=== PATIENT | male | born 1960 | race Caucasian/White ===

== ENCOUNTER 2019-06-01 06:00 | Day surgery (SDC) | payer OTHER ==
--- NOTE | 2019-05-30 09:55 | HP ---
PREOPERATIVE HISTORY AND PHYSICAL: DATE OF ADMISSION: 06/01/19 PROCEDURE: Left knee arthroscopy for partial meniscectomy. PHYSICIAN: Dr. Aleisha Rubi.* (DICTATED BY FELICIA RICHEY) CHIEF COMPLAINT: Left knee pain. HISTORY OF PRESENT ILLNESS: The patient is a 58-year-old gentleman with 6 months of acute left knee pain that has become progressively worse over the last month. He has swelling, catching and locking in the knee and the knee can feel unstable at times as if it is going to give out on him. His pain is increased with bending, stair climbing, pivoting and twisting and he has tried anti-inflammatories, brace wearing and exercises at home without relief. An MRI was performed, which confirmed a tear of the meniscus. PAST MEDICAL HISTORY: 1. Hypertension. 2. Hypercholesterolemia. 3. Osteoarthritis. 4. Prediabetes. PAST SURGICAL HISTORY: Cervical diskectomy with no anesthetic complications and no DVT or pulmonary embolus. FAMILY HISTORY: Positive for heart disease, hypertension, and cancer. Siblings with diabetes. 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 He denies tobacco, alcohol or recreational drug use. He is normally very active and he is right hand dominant. CURRENT MEDICATIONS: 1. Amlodipine besylate 10 mg 1 tab p.o. daily. 2. Ramipril 10 mg 2 tabs p.o. daily. 3. Meloxicam 15 mg 1 tab p.o. daily. 4. Atorvastatin calcium 10 mg 1 tab p.o. q.h.s. 5. Clobetasol propionate topical 0.05% to affected areas daily as needed. 6. Metformin HCL 500 mg 1 tab q.h.s. 7. Fish oil 1200 mg 2 tabs p.o. daily. 8. CoQ10 100 mg 1 tab p.o. daily. 9. Aspirin 81 mg p.o. daily. ALLERGIES: NIASPAN. REVIEW OF SYSTEMS: Fourteen systems are reviewed with the patient and are negative for fevers, chills, nausea, vomiting, chest pain or shortness of breath with exertion and all other systems are negative. PHYSICAL EXAMINATION GENERAL: He is a well-developed, well-nourished male seated in exam chair in no acute distress with appropriate affect. VITAL SIGNS: Height 73 inches, weight 260 pounds, pulse 77, blood pressure 138/ 82. HEENT: Normocephalic, atraumatic. Hearing and vision are grossly intact. His extraocular movements intact. NECK: The trachea is midline and symmetrical. LUNGS: Clear to auscultation. No wheezes, rales or rhonchi appreciated. CARDIO: Regular rate and rhythm. Normal S1, S2. No murmurs, rubs or gallops noted. ABDOMEN: Nondistended. Bowel sounds present. MUSCULOSKELETAL: The left lower extremity skin is intact without open wounds or abrasions. There is a moderate effusion of the knee. He extends the knee to 5 degrees, flexes to 120 with pain. He has a positive Apley's and Montserrat' s and is tender along the medial joint line. He is stable to varus and valgus stress with a negative Jeny's and no distal edema, varicosities or hyperreflexia. He has 5/5 strength against resistance in 4 planes in the ankle with intact sensation and a 2+ dorsalis pedis pulse. IMAGING: MRI shows a large joint effusion with medial extrusion and severe degenerative changes with tearing of the body and posterior horn of the medial meniscus as well as moderate hyaline cartilage thinning along the medial femoral condyle and medial tibial plateau with subchondral bone marrow edema. There is mild chondromalacia patella. IMPRESSION: Left knee meniscus tear and osteoarthritis. PLAN: Left knee arthroscopy with partial meniscectomy with Dr. Rubi. The patient's questions were answered and he would like to proceed. He will follow up postoperatively 10 to 14 days after procedure and call with questions or concerns otherwise. He has clearance with his primary care provider, Ada Giraldo, nurse practitioner on 06/01/19. FELICIA RICHEY [id number]/[facility] #: [id number] FARNAZ
[~2019-06-01 06:00] MED LIST: Acetaminophen TAB* 325 MG PO ONE; Buffered Lidocaine 1% SYRIN* 1 ML/SYRINGE INTRADERM ONE; Lactated Ringers 1000 ML Bag* 1,000 ML IV SCH
[2019-06-01] MEDS ORDERED: Acetaminophen TAB* 325 MG ONE (06:40)
[2019-06-01] MEDS ORDERED: Buffered Lidocaine 1% SYRIN* 1 ML/SYRINGE INTRADERM ONE (06:41)
[2019-06-01] MEDS ORDERED: ceFAZolin 2 GM PREMIX in ORs 2 GM/50 ML BAG ONE (06:41)
[2019-06-01] MEDS ORDERED: methylPREDNISolone ACETATE 80* 80 MG/ML 1 ML VIAL ONE (06:58)
[2019-06-01] MEDS ORDERED: Bupivacaine 0.5%* 50 ML MDV VIAL ONE (06:58)
[2019-06-01] MEDS ORDERED: EPINEPHRINE 1 MG/ML 1 ML VIAL ONE (06:58)
[2019-06-01] MEDS ORDERED: PROCHLORPERAZINE INJ 5 MG/ML 2 ML VIAL IV PRN (07:03)
[2019-06-01] MEDS ORDERED: oxyCODONE TAB* 5 MG TAB PO PRN (07:03)
[2019-06-01] MEDS ORDERED: Naloxone* 0.4 MG/ML 1 ML VIAL IV PRN (07:03)
[2019-06-01] MEDS ORDERED: diPHENhydraMINE IV* 50 MG/ML 1 ml VIAL (BENADRYL) IV PRN (07:03)
[2019-06-01] MEDS ORDERED: fentaNYL* 50 MCG/ML 2 ML VIAL (100 MCG VIAL) ONE ×2 (07:13→08:10)
[2019-06-01] MEDS ORDERED: Lidocaine 2% PF * 5 ML VIAL ONE (07:14)
[2019-06-01] MEDS ORDERED: Propofol* 10 MG/ML 20 ML BTL ONE (07:14)
[2019-06-01] MEDS ORDERED: Midazolam* 1 MG/ML 2 ML VIAL (2 MG) ONE (07:14)
[2019-06-01] MEDS ORDERED: Ketorolac INJ* 30 MG/ML 1 ML VIAL ONE (07:34)
[2019-06-01] MEDS ORDERED: Ondansetron INJ* 2 MG/ML VIAL ONE (07:34)
[2019-06-01] MEDS ORDERED: HYDROmorphone INJ1* 1 MG/ML SYRINGE ONE ×3 (07:46→10:39)
[2019-06-01] MEDS: HYDROmorphone INJ1* 1 MG/ML SYRINGE IV PRN ×2 (09:10→09:15)
[2019-06-01 11:19] VITALS: BP 121/69
--- NOTE | 2019-06-02 13:06 | OP ---
OPERATIVE REPORT: DATE OF OPERATION: 06/01/19 DATE OF : 64 ATTENDING SURGEON: Aleisha Rubi MD CERTIFIED PEST CONTROL TECHNICIAN: FELICIA Posada Trinajorge did help throughout the procedure with preparation of the leg, wound retraction, manipulat ion of the knee and wound closure. ANESTHESIOLOGIST: Dr. Stephen ANESTHESIA: General. PRE-OP DIAGNOSES: Left knee medial meniscal tear, mild osteoarthritis. POST-OP DIAGNOSES: Left knee medial meniscal tear, lateral meniscal tear, moderate- to-severe osteoa rthritis of the medial compartment. OPERATIVE PROCEDURE: Left knee arthroscopy with partial medial meniscectomy, partial lateral menisce ctomy, and medial chondroplasty. COMPLICATIONS: None. ESTIMATED BLOOD LOSS: 50 cc. SPECIMEN: None. BRIEF HISTORY/INDICATION: Mr. Arellano is a 58-year-old gentleman with acute onset of left knee pain and mechanical symptoms. He failed conservative treatment and MRI confirmed a medial meniscal tear. Plain film showed some mild arthritic changes. Due to the patient's continued pain and decreased qu ality of life, he elected to undergo left knee arthroscopy with partial medial meniscectomy. Informed consent was obtained from the patient. He understood the risk of surgery included, but were not collier ited to bleeding, infection, damage to nearby structures, continued pain, need for further surgery, r etear of the meniscus, progression of arthritis, anesthesia complications, stroke, heart attack, bloo d clot, and . He wished to proceed. INTRAOPERATIVE FINDINGS: Intraoperatively, the patient was noted to have a complex tear of the poste rior 50% of the medial meniscus with a parrot-beak type portion and a radial portion involving the wh ite-red zone. He was noted to have a radial tear in the mid portion of the lateral meniscus. He was noted to have grade 3 and 4 Outerbridge cartilage changes in the medial compartment with exposed sub chondral bone and cartilage flapping. DESCRIPTION OF PROCEDURE: Mr. Arellano was identified in the preanesthesia unit. His left lower extre mity was marked as the correct operative side. Informed consent was signed and placed in the chart. The patient was taken to the operating room and placed under anesthesia without difficulty. Left lo wer extremity was prepped and draped in the usual sterile fashion. Preop time-out was made to correc tly identify the patient, side and site. Appropriate perioperative antibiotics were given within 1 h our of incision. A 0.5 cm anterolateral portal incision was made with a 10 blade and carried down through the capsule. Trocar was introduced. As soon as the light and water sources were turned on, there was immediate visualization of the suprapatellar pouch. A tour of the knee joint was performed. Suprapatellar pouch had no obvious abnormality other than so me small cartilage fragments in the joint fluid. The patellofemoral compartment had minimal degenera tive changes. Medial gutter had no significant plica or loose body. Medial compartment showed immed iately grade 3 and 4 Outerbridge cartilage change along the medial femoral condyle. There was expose d subchondral bone and cartilage flapping. The posterior medial meniscus had a complex tear with dis placement of the meniscal tear into the joint space. ACL and PCL appeared to be intact. The knee wa s placed in a ysmegx-ac-pmrj position. There was a radial tear in the mid portion of the lateral meni scus. Minimal degenerative changes in the lateral compartment. These were grade 1 and 2 Outerbridge cartilage changes. Lateral gutter showed no loose body or abnormality. Under direct visualization, a medial portal incision was made. Probe was introduced and a second waqar r of the knee joint was performed. It was noted that the medial meniscus had a parrot-beak type frag ment that was displaced into the joint space. There was also radial type tear. These tears extended into the red- white and red-red zone. A straight biter and shaver were used to perform partial medi al meniscectomy. A smooth border of the medial meniscus was obtained mainly in the white-red zone. Further probing of meniscus showed no additional tears. Radiofrequency ablation wand was used to furt her smooth the edge of the meniscus. Radiofrequency ablation wand was used to smooth the edge of any cartilage flaps. This chondroplasty w as performed in a conservative fashion. The knee was placed in a pyumzf-de-gyas position. Straight biter and shaver were used to perform par tial lateral meniscectomy. The radial tear was excised from the red-white zone. The knee was copiously irrigated with sterile saline. All instruments were removed. The incisions w ere closed with 3-0 nylon suture. Sterile Xeroform, 4x4s and Webril were used to cover the incision. Alex wrap and cold pack were placed. The patient's anesthesia was reversed without difficulty. He w as taken to the PACU in stable condition. Intended weightbearing will be weightbearing as tolerated. Intended DVT prophylaxis will be aspirin. He will follow up in 2 weeks' time for suture removal. [id number]/[facility] #: [id number]
== END 2019-06-01 11:22 | disposition home or self-care (01) ==
LOC: OR 06:00
PROVIDERS: ATTEND Orthopaedic Surgery Adult Reconstructive Orthopaedic Surgery
DX: S83.242A Other tear of medial meniscus, current injury, left knee, initial encounter (principal); S83.282A Other tear of lateral meniscus, current injury, left knee, initial encounter; X58.XXXA Exposure to other specified factors, initial encounter; Y92.9 Unspecified place or not applicable; M17.12 Unilateral primary osteoarthritis, left knee; I10 Essential (primary) hypertension; E78.00 Pure hypercholesterolemia, unspecified; M19.90 Unspecified osteoarthritis, unspecified site; R73.03 Prediabetes; G47.33 Obstructive sleep apnea (adult) (pediatric); Z87.891 Personal history of nicotine dependence
CPT/HCPCS: A9270-GY; J0690; J1040; J1170; J1885; J2250; J2405; J2704; J3010; J3490

== ENCOUNTER 2019-06-16 18:23 | Emergency (ER) | payer OTHER ==
--- OUTSIDE RECORDS SUMMARY | 2019-06-16 18:32 | XMS REPORT | Continuity of Care Document ---
:1960 External Reference #:[id number] Author Name Aleisha Rubi M.D. (transmitted by agent of provider Elvia Lombardi) Address [address] [place] [address] [place] [address] Care Team Providers Name Role Phone Vickie Farfan MD - Internal Care Team Information [employer] [phone] Medicine Problems Active Problems Provider Date Hyperlipidemia Ada Varn, N.P. Onset: 08/07/2011 Impaired fasting glycaemia Ada Varn, N.P. Onset: 08/07/2011 Obstructive sleep apnea syndrome Loni Arizmendi MD Onset: 05/14/2014 Localized, primary osteoarthritis Aleisha Rubi M.D. Onset: 04/28/2019 Social History Type Date Description Comments Sex Unknown ETOH Use Rarely consumes alcohol Tobacco Use Start: Unknown End: Patient is a former Unknown smoker Recreational Drug Use Denies Drug Use Smoking Status Reviewed: 04/28/19 Patient is a former smoker Exercise Type/Frequency Exercises regularly Walks daily. Less in winter Allergies, Adverse Reactions, Alerts Active Allergies Reaction Severity Comments Date Niaspan rash Moderate 12/26/2009 Medications Active Medications SIG Qnty Indications Ordering Date Provider Amlodipine Besylate 1 by mouth every 90tabs Ada Varn, 12/21/2018 day N.P. 10mg Tablets Ramipril 2 by mouth every 180caps Ada Varn, 06/17/2018 10mg day N.P. Capsules Meloxicam Take 1 Tablet Daily 90tabs M54.2 Ada Varn, 05/16/2018 15mg N.P. Tablets Atorvastatin Take 1 Tablet AT 90tabs Ada Varn, 08/03/2015 Calcium Bedtime N.P. 10mg Tablets Ampicillin take 4 capsules 30 4caps Ada Giraldo, 06/24/2015 500mg - 60 minutes before N.P. Capsules dental appointments Clobetasol apply to affected 100units Ada Giraldo, 08/25/2013 Propionate area(s) once daily N.P. 0.05% as needed for scalp Solution Metformin HCL Take 1 Tablet Every 90tabs R73.01 Ada Giraldo, 09/26/2010 500mg Evening N.P. Tablets Fish Oil 2 po qd Unknown 1200mg Capsules Co Q-10 1 po qd Unknown 100mg Capsules Aspirin Adult Low 1 po qd 30units Unknown Strength 81mg Chewtabs Immunizations CPT Code Status Date Vaccine Reaction Lot # [id number] Given 12/31/2017 Influenza Virus Vaccine, Quadrivalent, Split, Preservative Free [id number] Given 03/01/2017 Tdap - No immediate [id number] Tetanus/Diptheria/Acellular reaction...jh Pertussis 70467 Given 01/05/2015 Influenza Virus Vaccine, Quadrivalent, Split, Preservative Free 77581 Given 12/27/2013 Influenza Virus Vaccine, [id number] Quadrivalent, Split, Preservative Free 71606 Given 12/27/2012 Flu Vaccine Split Virus [id number] Preservative Free For Indiv 3Yr Older [id number] Given 11/24/2006 Tdap - Tetanus/Diptheria/Acellular Pertussis Vital Signs Date Vital Result Comment 04/28/2019 2:10pm Height 73 inches 6'1" Weight 260.00 lb Heart Rate 74 /min BP Systolic Sitting 162 mmHg BP Diastolic Sitting 74 mmHg Respiratory Rate 14 /min Pain Level 3 O2 % BldC Oximetry 96 % BMI (Body Mass Index) 34.3 kg/m2 04/12/2019 1:37pm Height 73 inches 6'1" Weight 179.00 lb Heart Rate 79 /min BP Systolic Sitting 149 mmHg BP Diastolic Sitting 81 mmHg Body Temperature 97.6 F O2 % BldC Oximetry 93 % BMI (Body Mass Index) 23.6 kg/m2 Results Test Acquired Date Facility Test Result H/L Range Note Lipid Profile 11/23/2018 [facility] Triglycerides 114 mg/dL 1 (Trig/Chol/HDL) [address] [facility] [place] [address] [phone] Cholesterol 138 mg/dL 2 HDL Cholesterol 35.8 mg/dL 3 LDL Cholesterol 79 mg/dL 4 Comp Metabolic 11/23/2018 [facility] Sodium 142 mmol/L Normal 135-145 Panel [address] [place] [address] [phone] Potassium 3.6 mmol/L Normal 3.5-5.0 Chloride 108 mmol/L Normal 101-111 Co2 Carbon Dioxide 30 mmol/L Normal 22-32 Anion Gap 4 mmol/L Normal 2-11 Glucose 114 mg/dL High 70-100 Blood Urea Nitrogen 11 mg/dL Normal 6-24 Creatinine 0.63 mg/dL Low 0.67-1.17 BUN/Creatinine Ratio 17.5 Normal 8-20 Calcium 8.8 mg/dL Normal 8.6-10.3 Total Protein 6.4 g/dL Normal 6.4-8.9 Albumin 4.3 g/dL Normal 3.2-5.2 Globulin 2.1 g/dL Normal 2-4 Albumin/Globulin Ratio 2.0 Normal 1-3 Total Bilirubin 0.60 mg/dL Normal 0.2-1.0 Alkaline Phosphatase 84 U/L Normal 34-104 Alt 52 U/L Normal 7-52 Ast 26 U/L Normal 13-39 Egfr Non- 131.7 >60 Egfr 159.4 >60 5 1 Desirable: <150 Borderline High: 150-199 High: 200-499 Very High: >500 2 Desirable: <200 Borderline High: 200-239 High: >239 3 Low: <40 Desirable: 40-60 High: >60 4 Desirable: <100 Near Optimal: 100-129 Borderline High: 130-159 High: 160-189 Very High: >189 5 Because ethnic data is not always readily available, this report includes an eGFR for both -Americans and non- Americans. The National Kidney Disease Education Program (NKDEP) does not endorse the use of the MDRD equation for patients that are not between the ages of 18 and 70, are , have extremes of body size, muscle mass, or nutritional status, or are non- or non-. According to the National Kidney Foundation, irrespective of diagnosis, the stage of the disease is based on the level of kidney function: Stage Description GFR(mL/min/1.73 m(2)) 1 Kidney damage with normal or decreased GFR 90 2 Kidney damage with mild decrease in GFR 60-89 3 Moderate decrease in GFR 30-59 4 Severe decrease in GFR 15-29 5 Kidney failure <15 (or dialysis) Procedures Date Code Description Status 12/26/2012 [id number] Colonoscopy Completed Medical Devices Description No Information Available Encounters Type Date Location Provider Dx Diagnosis Office Visit 04/12/2019 [facility] Internal Ada Giraldo, M25.562 [facility] 12/21[facility]2018 [facility] Internal Ada Giraldo, I10 Essential (primary ) 3:20p [facility] hypertension Assessments Date Code Description Provider 04/28/2019 M25.562 Pain in left knee Aleisha Rubi M.D. 04/28/2019 M25.462 Effusion, left knee Aleisha Rubi M.D. 04/28/2019 M17.12 Unilateral primary osteoarthritis, left knee Aleisha Rubi M.D. 04/12/2019 M25.562 Pain in left knee Ada Giraldo, N.P. 12/21/2018 I10 Essential (primary) hypertension Ada Giraldo, N.P. Plan of Treatment Future Appointment(s):08/18/2019 8:40 am - Ada Giraldo N.P. at [facility] - Aleisha Rubi M.D.M25.562 Pain in left kneeNew Xrays:Knee Left 1-2 VWS, Ordered: 04/28/19M25.462 Effusion, left kneeNew Xrays: MRI Knee Left W/O, Ordered: 04/28/19Follow up:Follow up: after testing is completed - l knee mriM17.12 Unilateral primary osteoarthritis, left knee Functional Status Description No Information Available Mental Status Description No Information Available Referrals Refer to Reason for Referral Status Appt Date Art Morton MD Patient with left knee pain for the past 3 Scheduled months. Referred for evaluation and treatment.Thank you for seeing this very pleasant patient. [address] [place] [address] [phone]
--- OUTSIDE RECORDS SUMMARY | 2019-06-16 18:32 | XMS REPORT | Continuity of Care Document ---
:1960 External Reference #:[id number] Author Name Aleisha Rubi M.D. 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 Onset: 08/07/2011 Impaired fasting glycaemia Ada Varnimco, N.P. Onset: 08/07/2011 Obstructive sleep apnea syndrome Loni Arizmendi MD Onset: 05/14/2014 Current tear of medial cartilage AND/OR Aleisha Rubi M.D. Onset: 05/29/2019 meniscus of knee Localized, primary osteoarthritis Aleisha Rubi M.D. Onset: 04/28/2019 Social History Type Date Description Comments Sex Unknown ETOH Use Rarely consumes alcohol Tobacco Use Start: Unknown End: Patient is a former Unknown smoker Recreational Drug Use Denies Drug Use Smoking Status Reviewed: 05/29/19 Patient is a former smoker Exercise Type/Frequency [...] Meloxicam Take 1 Tablet Daily 90tabs M54.2 Aad Giraldo, 05/16/2018 15mg N.P. Tablets Atorvastatin Take 1 Tablet AT 90tabs Ada Giraldo, 08/03/2015 Calcium Bedtime N.P. 10mg Tablets Ampicillin [...] Code Status Date Vaccine Reaction Lot # [id number] Given 12/31/2017 Influenza Virus Vaccine, Quadrivalent, Split, Preservative Free [id number] Given 03/01/2017 Tdap - No immediate [id number] Tetanus/Diptheria/Acellular reaction...jh Pertussis 52804 Given 01/05/2015 Influenza Virus Vaccine, Quadrivalent, Split, Preservative Free 99741 Given 12/27/2013 Influenza Virus Vaccine, [id number] Quadrivalent, Split, Preservative Free 68190 Given 12/27/2012 Flu Vaccine Split Virus [id number] Preservative Free For Indiv 3Yr Older 69367 Given 11/24/2006 Tdap - Tetanus/Diptheria/Acellular Pertussis Vital Signs Date Vital Result Comment 05/29/2019 12:56pm Height 73 inches 6'1" Weight 260.00 lb Heart Rate 77 /min BP Systolic 138 mmHg BP Diastolic 82 mmHg Body Temperature 97.5 F Pain Level 5 BMI (Body Mass Index) 34.3 kg/m2 04/28/2019 2:10pm Height 73 inches 6'1" Weight 260.00 lb Heart Rate 74 /min BP Systolic Sitting 162 mmHg BP Diastolic Sitting 74 mmHg Respiratory Rate 14 /min Pain Level 3 O2 % BldC Oximetry 96 % BMI (Body Mass Index) 34.3 kg/m2 Results Description No Information Available Procedures Date Code Description Status 12/26/2012 [id number] Colonoscopy Completed Medical Devices Description No Information Available Encounters Type Date Location Provider Dx Diagnosis Office Visit 04/28/2019 [facility] Aleisha Rubi, M25.562 Pain in left knee 2:00p at [facility] M25.462 Effusion, left knee M17.12 Unilateral primary osteoarthritis, left knee M23.8x2 Other internal derangements of left knee Office Visit 04/12/2019 1:40p [facility] Internal Ada Giraldo, M25.562 Pain in left knee Medicine - N.P. [facility] Office Visit 12/21/2018 3:20p [facility] Internal Ada Giraldo, I10 Essential Medicine - N.P. (primary) [facility] hypertension Assessments Date Code Description Provider 05/29/2019 M25.562 Pain in left knee Aleisha Rubi M.D. 05/29/2019 M25.462 Effusion, left knee Aleisha Rubi M.D. 05/29/2019 M17.12 Unilateral primary osteoarthritis, left knee Aleisha Rubi M.D. 05/29/2019 S83.242A Other tear of medial meniscus, current Aleisha Rubi M.D. injury, left knee, initial encounter 04/28/2019 M25.562 Pain in left knee Aleisha Rubi M.D. 04/28/2019 M25.462 Effusion, left knee Aleisha Rubi M.D. 04/28/2019 M17.12 Unilateral primary osteoarthritis, left knee Aleisha Rubi M.D. 04/28/2019 M23.8x2 Other internal derangements of left knee Aleisha Rubi M.D. 04/12/2019 M25.562 Pain in left knee Ada Giraldo, N.P. 12/21/2018 I10 Essential (primary) hypertension Ada Giraldo, N.P. Plan of Treatment Future Appointment(s):05/30/2019 1:00 pm - Ada Giral[facility], N.P. at [facility] am - Ada Giraldo N.P. at [facility] Internal [facility] - [facility]05/29/2019 - Aleisha Rubi M.D.M25.562 Pain in left kneeFollow up:Follow up: 10-14 days [id number] Effusion, left kneeM17.12 Unilateral primary osteoarthritis, left kneeS83.242A Other tear of medial meniscus, current injury, left knee, initial encounter Functional Status Description No Information Available Mental Status Description No Information Available Referrals Refer to Reason for Referral Status Appt Date Art Morton MD Patient with left knee pain for the past 3 Scheduled months. Referred for evaluation and treatment.Thank you for seeing this very pleasant patient. [address] [place] [address] [phone]
--- OUTSIDE RECORDS SUMMARY | 2019-06-16 18:32 | XMS REPORT | Continuity of Care Document ---
:1960 External Reference #:[id number] Author Name Ada Giraldo N.P. (transmitted by agent of provider Lori Kessler) Address [address] [facility], [place] [address] Care Team Providers Name Role Phone Vickie Farfan MD - Internal Care Team Information [employer] [phone] Medicine Problems Active Problems Provider Date Hyperlipidemia Ada Giraldo, N.P. Onset: 08/07/2011 Impaired fasting glycaemia Ada Giraldo, N.P. Onset: 08/07/2011 Obstructive sleep apnea syndrome [...] Use Denies Drug Use Smoking Status Reviewed: 05/30/19 Patient is a former smoker Exercise Type/Frequency Does not exercise Due to knee pain Allergies, Adverse Reactions, Alerts Active Allergies Reaction [...] Atorvastatin Take 1 Tablet AT 90tabs Ada Alvaresnimco, 08/03/2015 Calcium Bedtime N.P. 10mg Tablets Ampicillin [...] Code Status Date Vaccine Reaction Lot # [id number] Given 12/31/2017 Influenza Virus Vaccine, Quadrivalent, Split, Preservative Free 25602 Given 03/01/2017 Tdap - No immediate [id number] Tetanus/Diptheria/Acellular reaction...jh Pertussis 12101 Given 01/05/2015 Influenza Virus Vaccine, Quadrivalent, Split, Preservative Free 70569 Given 12/27/2013 Influenza Virus Vaccine, [id number] Quadrivalent, Split, Preservative Free 03783 Given 12/27/2012 Flu Vaccine Split Virus [id number] Preservative Free For Indiv [id number] Older 99644 Given 11/24/2006 Tdap - Tetanus/Diptheria/Acellular Pertussis Vital Signs Date Vital Result Comment 05/30/2019 1:10pm Height 73 inches 6'1" Weight 276.12 lb Heart Rate 76 /min BP Systolic Sitting 130 mmHg BP Diastolic Sitting 77 mmHg Body Temperature 97.4 F O2 % BldC Oximetry 96 % BMI (Body Mass Index) 36.4 kg/m2 05/29/2019 12:56pm Height 73 inches 6'1" Weight 260.00 lb Heart Rate 77 /min BP Systolic 138 mmHg BP Diastolic 82 mmHg Body Temperature 97.5 F Pain Level 5 BMI (Body Mass Index) 34.3 kg/m2 Results Description No Information Available Procedures Date Code Description Status 12/26/2012 88374026 Colonoscopy Completed Medical Devices Description No Information Available Encounters Type Date Location Provider Dx Diagnosis Office Visit 04/28/2019 [facility] Aleisha Rubi, M25.562 Pain in left knee 2:00p at [place] [facility] M25.462 Effusion, left knee M17.12 Unilateral primary osteoarthritis, left knee M23.8x2 Other internal derangements of left knee Office Visit 04/12/2019 1:40p [facility] Internal Ada iGraldo, M25.562 Pain in left knee Medicine - N.P. Ccmob Office Visit 12/21/2018 3:20p [facility] Internal Ada Enzo, I10 Essential Medicine [facility] Date Code Description Provider 05/30/2019 Z01.818 Encounter for other preprocedural examination Ada Giraldo, N.P. 05/30/2019 M25.562 Pain in left knee Ada Giraldo, N.P. 05/30/2019 I10 Essential (primary) hypertension Ada Giraldo, N.P. 05/30/2019 G47.33 Obstructive sleep apnea (adult) (pediatric) Ada Giraldo , N.P. 05/29/2019 M25.562 Pain in left knee Aleisha [...] N.P. 12/21/2018 I10 Essential (primary) hypertension Ada Giraldo NChar Plan of Treatment Future Appointment(s):06/14/2019 8:15 am - Aleisha Rubi M.D. at [facility] at Seqeat0806/01/2019 7:30 am - Jim Rodas PA-C at [facility] at Rcyadr2306/01/2019 7:30 am - FELICIA Cheng at [facility] at Gwmttj2806/01/2019 7:30 am - Aleisha Rubi M.D. at [facility] at Nmguuz6108/18/2019 8:40 am - Ada Giraldo N.P. at [facility] Internal Medicine - [facility]/30/2019 - Ada Giraldo N.P.Z01.818 Encounter for other preprocedural examinationNew Orders:EKG, Ordered: 05/30/19Comments:I am ordering some routine preoperative lab work. The office will contact you with your results. Youmay take all of your usual medications the morning of your surgery, unless your surgeon tells you otherwise.M25.562 Pain in left kneeI10 Essential (primary) [id number] Obstructive sleep apnea (adult) ( pediatric) Functional Status Description No Information Available Mental Status Description No Information Available Referrals Refer to Reason for Referral Status Appt Date Art Morton MD Patient with left knee pain for the past 3 Scheduled months. Referred for evaluation and treatment.Thank you for seeing this very pleasant patient. [address] [place] [address] [place] [address] [phone]
[2019-06-16 18:38] VITALS: BP 165/90
--- NOTE | 2019-06-16 18:54 | UC ---
Abdominal Pain Male HPI - HPI Summary HPI Summary: 58 yo with onset of episodes of right lower abdominal pain x 3 days ago. Began acutely, sharp and knife like, and brought him to his knees. Resolved over time , but recurred the following afternoon. Caused nausea and dry heaves. He did not have pain on 06/14, but today has had steadily worsening pain in the RLQ with radiation to the back, associated with rectal pressure. He has had 2 normal non-bloody stools today. He has had a colonoscopy, reports normal and without diverticulae. Off and on he has a sense of incomplete voiding but also incomplete evacuation. No hx of renal stones or prostatitis. He has not used the oxycodone which he was given for knee pain in over a week. - History of Current Complaint Chief Complaint: UCGeneralIllness Stated Complaint: ABDOMINAL PAIN X3 DAYS Time Seen by Provider: 06/16/19 18:40 Hx Obtained From: Patient Onset/Duration: Sudden Onset Timing: Intermittent Episodes Lasting: - hours Severity Initially: Moderate Severity Currently: Moderate Pain Intensity: 7 Location: Discrete At: RLQ Radiates: Yes Radiates to: Back Character: Sharp Aggravating Factor(s): Nothing Alleviating Factor(s): Spontaneous Resolution - in the past days, but today is persisting and worsening. Associated Signs And Symptoms: Positive: Diaphoresis, Urinary Symptoms, Nausea - and dry heaves when pain is intense. - Risk Factors Testicular Torsion: Negative Cardiac Risk Factors: Hypertension - Allergies/Home Medications Allergies/Adverse Reactions: Allergies Allergy/AdvReac Type Severity Reaction Status Date / Time niacin Allergy Itching Verified 06/16/19 18:39 [From Niaspan Extended-Release] Home Medications: Home Medications Atorvastatin* [Lipitor*] 10 mg PO BEDTIME 08/07/12 [History Confirmed 06/16/19] Amlodipine Besylate [Norvasc] 10 mg PO QPM 05/31/19 [History Confirmed 06/16/19] Aspirin 81 mg CHEW TAB* 81 mg PO QPM 05/31/19 [History Confirmed 06/16/19] Clobetasol 0.05% OINT* 1 applic TOPICAL ONCE PRN 05/31/19 [History Confirmed ] Meloxicam [Mobic] 15 mg PO QAM 05/31/19 [History Confirmed 06/16/19] Ashby-3/Dha/Epa/Fish Oil [Ashby-3 Fish Oil 1,200 mg Sfgl] 2,400 mg PO QPM [History Confirmed 06/16/19] Ramipril CAP* [Altace CAP*] 20 mg PO BEDTIME 05/31/19 [History Confirmed ] Ubidecarenone [Co Q-10] 100 mg PO QPM 05/31/19 [History Confirmed 06/16/19] metFORMIN* [Glucophage 500 MG TAB *] 500 mg PO QPM 05/31/19 [History Confirmed 06/16/19] PMH/Surg Hx/FS Hx/Imm Hx Endocrine History: Dyslipidemia, Other - pre-diabetes Cardiovascular History: Hypertension - Surgical History Surgical History: Yes Surgery Procedure, Year, and Place: CERVICAL SURGERY X 2, DISKECTOMY AND PLATE PLACEMENT C4-5~1998 & C5-6~2010. METAL TAKEN OUT OF LEFT EYE-CLEARED ON ORBIT DX-[facility]. Left knee 05/2019 - Family History Known Family History: Positive: Cardiac Disease, Hypertension, Respiratory Disease - father of lung CA, mother of an undiagnosed abdominal cancer, Other - Social History Lives: With Family Alcohol Use: Rare Alcohol Amount: 1 RARELY Substance Use Type: None Smoking Status (MU): Former Smoker Amount Used/How Often: <1/2 PPD X 30 YRS When Did the Patient Quit Smoking/Using Tobacco: 2007 Review of Systems All Other Systems Reviewed And Are Negative: Yes Constitutional: Positive: Negative Skin: Positive: Negative Eyes: Positive: Negative ENT: Positive: Negative Respiratory: Positive: Negative Cardiovascular: Positive: Other - hx of treated hypertension Gastrointestinal: Positive: Abdominal Pain, Nausea. Negative: Vomiting, Diarrhea Genitourinary: Positive: Other - sense of bladder pressure Motor: Positive: Negative Neurovascular: Positive: Negative Musculoskeletal: Positive: Negative Neurological/Mental Status: Positive: Negative Psychological: Positive: Negative Is Patient Immunocompromised?: No Physical Exam Triage Information Reviewed: Yes Appearance: Well-Appearing, Pain Distress - mild to moderate Vital Signs: Initial Vital Signs Temp 98.4 F 06/16/19 18:32 Pulse 79 06/16/19 18:32 Resp 14 06/16/19 18:32 BP 165/90 06/16/19 18:32 Pulse Ox 98 06/16/19 18:32 Eye Exam: Normal ENT: Positive: Pharynx normal Neck: Positive: Supple, Nontender, No Lymphadenopathy Respiratory: Positive: Lungs clear, Normal breath sounds Cardiovascular: Positive: RRR, No Murmur Abdomen Description: Positive: No Organomegaly, Soft, Distended, Guarding - voluntary guarding with palpation of the RLQ Bowel Sounds: Positive: Hypoactive Musculoskeletal Exam: Other - antalgic gait, limping Neurological Exam: Normal Neurological: Positive: Alert, Muscle Tone Normal Psychological Exam: Normal Skin Exam: Normal Diagnostics - Laboratory Lab Results: UA with 2+ blood Abd Pain Male Course/Dx - Course Course Of Treatment: Advised ER for evaluation of pain. - Differential Dx/Clinical Impression Differential Diagnosis/HQI/PQRI: Appendicitis, Diverticulitis, Prostatitis, Ureteral Stone, Urinary Tract Infection Provider Diagnosis: Right lower quadrant abdominal pain - Physician Notification/Consults Discussed Patient Care With: Dr. Christel Stout Time Discussed With Above Provider: 19:00 Discharge ED - Sign-Out/Discharge Documenting (check all that apply): Patient Departure All imaging exams completed and their final reports reviewed: No Studies - Discharge Plan Condition: Stable Disposition: TRANS HIGHER L OF CARE FAC Patient Education Materials: Acute Abdominal Pain (ED) Referrals: Vickie Farfan MD [Primary Care Provider] - Additional Instructions: Please proceed directly to the emergency room for evaluation of your abdominal pain, due to the possible causes such as appendicitis, kidney stones, diverticulitis. Testing is needed which cannot be done here. - Billing Disposition and Condition Condition: STABLE Disposition: Trans Higher Lvl of Care Fac
== END 2019-06-16 19:13 | disposition short-term general hospital (02) ==
LOC: UCCORT 18:23
DX: R10.31 Right lower quadrant pain (principal); R11.0 Nausea; R61 Generalized hyperhidrosis; R73.03 Prediabetes; E78.5 Hyperlipidemia, unspecified; I10 Essential (primary) hypertension; Z79.84 Long term (current) use of oral hypoglycemic drugs; Z79.899 Other long term (current) drug therapy; Z88.8 Allergy status to other drugs, medicaments and biological substances; Z87.891 Personal history of nicotine dependence
CPT/HCPCS: 81003; 99212; G0463

== ENCOUNTER 2020-03-08 07:54 | Observation (INO) ==
[~2020-03-08 07:54] MED LIST changes: -Acetaminophen TAB* 325 MG PO ONE; +Buffered Lidocaine 1% SYRIN 1 ml INTRADERM ONE; -Buffered Lidocaine 1% SYRIN* 1 ML/SYRINGE INTRADERM ONE; +Dexamethasone IV 4 MG/ML VIAL 1 ml VIAL IV SLOW PU ONE; -Lactated Ringers 1000 ML Bag* 1,000 ML IV SCH; +Lactated Ringers 1000 ml BAG 1,000 ML IV SCH
[2020-03-08] MEDS ORDERED: Phenylephrine IV 10 MG/ML 1 ml VIAL ONE (08:18)
[2020-03-08] MEDS ORDERED: Lidocaine 2% PF 5 ML VIAL ONE (08:18)
[2020-03-08] MEDS ORDERED: Midazolam 2 mg/2 ml VIAL 1 mg/ml 2 ml VIAL (2 mg) ONE (08:18)
[2020-03-08] MEDS ORDERED: Dexamethasone IV 4 MG/ML VIAL 1 ml VIAL ONE ×2 (08:19→08:33)
[2020-03-08] MEDS ORDERED: Buffered Lidocaine 1% SYRIN 1 ml INTRADERM ONE (08:20)
[2020-03-08] MEDS ORDERED: ceFAZolin 2 GM PREMIX 2 GM/50 ML BAG ONE (08:20)
[2020-03-08] MEDS ORDERED: ceFAZolin 1 GM ADVAN 1 GM ADDV.VIAL IVPB ONE (08:20)
[2020-03-08] MEDS ORDERED: Ondansetron 4 mg VIAL 2 MG/ML 2 ml VIAL ONE ×2 (08:33→13:21)
[2020-03-08] MEDS ORDERED: Naloxone 0.4 mg VIAL 0.4 mg/ml 1 ml VIAL IV PRN (08:44)
[2020-03-08] MEDS ORDERED: Ondansetron 4 mg VIAL 2 MG/ML 2 ml VIAL IV PRN ×2 (08:44→13:20)
[2020-03-08] MEDS ORDERED: ROPIVACAINE 5 MG/ML 30 ML BTL (0.5%) ONE ×2 (09:14→09:35)
[2020-03-08] MEDS ORDERED: Lidocaine 1% MPF 5 ML VIAL ONE (09:14)
[2020-03-08] MEDS ORDERED: Propofol 10 MG/ML 20 ML BTL ONE ×2 (10:44→11:30)
[2020-03-08] MEDS ORDERED: Ketamine HCL 50 mg/ml 10 ml VIAL (500 MG) ONE (10:46)
[2020-03-08] MEDS ORDERED: fentaNYL 100 mcg/2 ml 50 MCG/ML VIAL ONE ×3 (12:56→13:34)
[2020-03-08] MEDS ORDERED: HYDROmorphone 1 MG/1 ML SYRINGE ONE (13:00)
[2020-03-08] MEDS: HYDROmorphone 1 MG/1 ML SYRINGE IV PRN ×5 (13:02→13:24)
[2020-03-08] MEDS ORDERED: Magnesium Hydroxide LIQ 30 ML UDC PO PRN (13:20)
[2020-03-08] MEDS ORDERED: diPHENhydraMINE IV 50 MG/ML 1 ml VIAL (BENADRYL) IV PRN (13:20)
[2020-03-08] MEDS ORDERED: Ondansetron ODT 4 mg TAB 4 MG TAB PO PRN (13:20)
[2020-03-08] MEDS ORDERED: Morphine 2 MG/ML SYRINGE IV PRN (13:20)
[2020-03-08] MEDS ORDERED: diPHENhydraMINE 25 mg TAB PO PRN (13:20)
[2020-03-08] MEDS ORDERED: Lactulose 30 ml UDC PO PRN (13:20)
[2020-03-08] MEDS ORDERED: oxyCODONE/Acetamin 5/325 mg TAB PO PRN (13:20)
[2020-03-08] MEDS: fentaNYL 100 mcg/2 ml 50 MCG/ML VIAL IV PRN ×4 (13:24→13:32)
[2020-03-08] MEDS ORDERED: Morphine 2 MG/ML SYRINGE ONE (14:21)
[2020-03-08] MEDS: Lactated Ringers 1000 ml BAG 1,000 ML IV SCH (14:23)
[2020-03-08] MEDS: oxyCODONE/Acetamin 5/325 mg TAB PO PRN ×2 (14:50→22:00)
[2020-03-08] MEDS: ceFAZolin 1 GM ADVAN 1 GM in NS 0.9% 50 ML 50 ML IVPB SCH (19:35)
[2020-03-08] MEDS: Magnesium Hydroxide LIQ 30 ML UDC PO SCH (22:15)
[2020-03-09] MEDS: Lactated Ringers 1000 ml BAG 1,000 ML IV SCH (01:23)
[2020-03-09] MEDS: ceFAZolin 1 GM ADVAN 1 GM in NS 0.9% 50 ML 50 ML IVPB SCH ×2 (03:13→11:08)
[2020-03-09] MEDS: oxyCODONE/Acetamin 5/325 mg TAB PO PRN ×2 (06:30→11:06)
[2020-03-09 07:09] LABS: Hematocrit 36 % (42-52); Hemoglobin 12.4 g/dL (14.0-18.0); Mean Platelet Volume 8.8 fL (7.4-10.4); Platelet Count 210 10^3/uL (150-450)
[2020-03-09 07:22] LABS: BUN/Creatinine Ratio 22.7 (8-20); Calcium 8.8 mg/dL (8.6-10.3); EGFR African American 150.5 (>60); EGFR Non-African American 124.4 (>60); Potassium 3.6 mmol/L (3.5-5.0)
[2020-03-09] MEDS: Magnesium Hydroxide LIQ 30 ML UDC PO SCH (08:29)
[2020-03-09] MEDS ORDERED: Vitamin THERAPEUTIC TAB PO SCH (09:00)
[2020-03-09 11:26] VITALS: BP 129/44
== END 2020-03-09 13:30 | disposition home or self-care (01) ==
LOC: SSU 07:54 → OR 07:54 → EDSTATUS 10:30
PROVIDERS: ADMIT Orthopaedic Surgery Adult Reconstructive Orthopaedic Surgery; ATTEND Orthopaedic Surgery Adult Reconstructive Orthopaedic Surgery

== ENCOUNTER 2024-02-02 05:27 | Observation (INO) ==
[~2024-02-02 05:27] MED LIST changes: -Buffered Lidocaine 1% SYRIN 1 ml INTRADERM ONE; -Dexamethasone IV 4 MG/ML VIAL 1 ml VIAL IV SLOW PU ONE; -Lactated Ringers 1000 ml BAG 1,000 ML IV SCH; +Lidocaine 1% w EPI 1:100,000 MDV 20 ML VIAL ONE; +Metoclopramide 5 MG/ML VIAL (10 mg) IV PRN; +NS 0.45% 1000 ml BAG 1,000 ML IV SCH; +Naloxone 0.4 mg VIAL 0.4 mg/ml 1 ml VIAL IV PRN; +Ondansetron 4 mg VIAL 2 MG/ML 2 ml VIAL IV PRN; +Thrombin 5,000 UNITS(BOVINE) for Ultrasound Guided Pseudoaneursym ONE; +ceFAZolin VIAL VIAL ONE
[2024-02-02] MEDS ORDERED: ceFAZolin 2 GM PREMIX 0 GM/0 ML BAG ONE (05:51)
[2024-02-02] MEDS ORDERED: ceFAZolin 2 GM PREMIX 2 GM/50 ML BAG ONE (06:02)
[2024-02-02 06:05] LABS: Rapid COVID-19 Molecular Undetected (Undetected)
[2024-02-02] MEDS: Acetaminophen IV 1 GM/100ML 1,000 MG/100 ML BAG IV ONE (06:13)
[2024-02-02] MEDS: Lactated Ringers 1000 ml BAG 1,000 ML IV SCH ×2 (06:13→12:17)
[2024-02-02] MEDS: Scopolamine 1 mg/72hr PATCH TRANSDERM ONE (06:13)
[2024-02-02] MEDS: Buffered Lidocaine 1% SYRIN 1 ml INTRADERM ONE (06:13)
[2024-02-02] MEDS ORDERED: fentaNYL 100 mcg/2 ml 50 MCG/ML VIAL ONE ×4 (07:20→10:38)
[2024-02-02] MEDS ORDERED: Midazolam 2 mg/2 ml VIAL 1 mg/ml 2 ml VIAL (2 mg) ONE (07:20)
[2024-02-02] MEDS ORDERED: Rocuronium 50 mg VIAL 10 mg/ml 5 ml VIAL (50 mg) ONE (07:42)
[2024-02-02] MEDS ORDERED: HYDROmorphone 0.5 MG/0.5 ML SYRINGE ONE (07:45)
[2024-02-02] MEDS ORDERED: Phenol 1.4% Throat Spray BTL MT PRN (09:27)
[2024-02-02] MEDS ORDERED: Magnesium Hydroxide LIQ 30 ML UDC PO PRN (09:27)
[2024-02-02] MEDS ORDERED: Morphine 2 MG/ML SYRINGE IV PRN (09:27)
[2024-02-02] MEDS ORDERED: Calcium Carb (TUMS) 500 mg CHEW TAB PO PRN (09:27)
[2024-02-02] MEDS ORDERED: Dextran 70/Hypromellose Tears Eye Drops 15 ml BTL (for Artificials Tears) BOTH EYES PRN (09:27)
[2024-02-02] MEDS ORDERED: Ondansetron 4 mg VIAL 2 MG/ML 2 ml VIAL IV PRN (09:27)
[2024-02-02] MEDS ORDERED: Benzocaine/Menthol LOZ MT PRN (09:27)
[2024-02-02] MEDS ORDERED: Senna TAB 8.6 mg TAB PO PRN (09:27)
[2024-02-02] MEDS: fentaNYL 100 mcg/2 ml 50 MCG/ML VIAL IV PRN (10:13)
[2024-02-03 05:24] VITALS: BP 132/84
== END 2024-02-03 10:55 | disposition home or self-care (01) ==
LOC: SSU 05:27 → OR 05:27
PROVIDERS: ADMIT Neurological Surgery; ATTEND Neurological Surgery